=== PATIENT | male | born 1980 | race African-American/Black ===

== ENCOUNTER 2022-08-12 23:21 | Emergency (ER) | payer OTHER, SELFPAY ==
[2022-08-12 23:34] VITALS: BP 181/118; PULSE 81; RESP 18; TEMP 36.7; O2SAT 98; BMI 26.2
[2022-08-13] VITALS (8 sets, daily range): BP systolic 158–188; BP diastolic 90–119; PULSE 60–79; O2SAT 98–100
[2022-08-13] MEDS: METFORMIN HCL 500 MG TABLET 1000 MG PO (00:20)
[2022-08-13] MEDS: glipiZIDE 5 MG TABLET 10 MG PO (00:20)
[2022-08-13 00:42] LABS: Add Manual Diff / Slide Review NO; Basophils Absolute Auto 0 /uL (0-100); Basophils Percent Auto 0.5 % (0-2); Eosinophils Absolute Auto 100 /uL (0-450); Eosinophils Percent Auto 0.9 % (2-4); Hematocrit 43.1 % (41-53); Hemoglobin 14.3 g/dL (13.5-17.5); Lymphocytes Absolute Auto 2100 /uL (1100-4500); Lymphocytes Percent Auto 34.3 % (25-40); Mean Corpuscular HGB Conc 33.1 % (30-36); Mean Corpuscular Hemoglobin 27.7 PG (26-34); Mean Corpuscular Volume 83.7 fL (80-100); Monocytes Absolute Auto 400 /uL (0-900); Monocytes Percent Auto 6.9 % (3-14); Neutrophils Absolute Auto 3500 /uL (1500-7000); Neutrophils Percent Auto 57.4 % (50-75); Platelet Count 246 X10^3/uL (150-400); Red Blood Cell Count 5.15 X10^6/uL (4.5-5.9); Red Cell Distribution Width 13.2 % (11.6-14.8)
[2022-08-13] MEDS: SODIUM CHLORIDE 0.9% 1,000 ML 1000 ML IV (00:58)
[2022-08-13 00:59] LABS: Alanine Aminotransferase 37 IU/L (<50); Albumin 4.4 g/dL (3.5-5.0); Albumin Globulin Ratio 1.5 (1.0-2.8); Alkaline Phosphatase 71 U/L (38-126); Aspartate Aminotransferase 27 IU/L (17-59); BUN Creatinine Ratio 21.4 (6-22); Bilirubin Total 0.8 mg/dL (0.2-1.3); Blood Urea Nitrogen 18 mg/dL (9-20); Carbon Dioxide 27 mmol/L (22-32); Chloride 95 mmol/L (98-107); Estimated Glomerular Filt Rate > 60 mL/min (>60); Glucose 430 mg/dL (70-100); HEMOLYSIS < 15 (0-50); Lactate (Lactic Acid) 0.9 mmol/L (0.7-2.1); Lipase 218 U/L (23-300); Magnesium 1.8 mg/dL (1.6-2.3); Potassium 3.9 mmol/L (3.4-5.1); Sodium 131 mmol/L (137-145); Total Protein 7.4 g/dL (6.3-8.2)
--- NOTE | 2022-08-13 02:00 | PC.NURSE ---
pt here d/t elevated bs and htn, pt is from out of town here working, and did not take his meds
--- NOTE | 2022-08-13 02:07 | ED_ITS ---
HPI - General Adult General Chief complaint: Hypertension Stated complaint: high bp/diabetic sugar high/vomiting Time Seen by Provider: 08/12/22 23:26 Source: patient Mode of arrival: Ambulatory History of Present Illness HPI narrative: 42M nonsmoker with a history of NIDDM presents with a single episode of vomiting and elevated blood sugars in the 400s he also states he noted that he had blood pressure elevated in the 180s earlier today. He denies headache or blurred vision. He has no chest pain or shortness of breath. He denies any abdominal pain. He does state that he has not taken his diabetic medications today and admits that he was eating very poorly and had a large amount of sugary foods. Related Data Previous Rx's Medication Instructions Recorded glipizide 10 mg tablet 10 mg PO BID #60 tabs 08/13/22 lisinopril 20 mg tablet 20 mg PO DAILY #30 tabs 08/13/22 Allergies Allergy/AdvReac Type Severity Reaction Status Date / Time No Known Drug Allergies Allergy Verified 08/12/22 23:34 Review of Systems Review of Systems Narrative: GENERAL: Denies chills, fatigue, malaise, fever, sweats. HEENT: Denies sinus pain, ear pain, sore throat, difficulty swallowing, dizziness. RESPIRATORY: Denies dyspnea, cough, wheezing, hemoptysis, sputum. CARDIOVASCULAR: Denies chest pain, palpitations, orthopnea, edema, GASTROINTESTINAL: See HPI : Denies dysuria, frequency, incontinence, hematuria, urinary retention. MUSCULOSKELETAL: denies weakness, joint pain, or bony pain SKIN: Denies rash, skin lesions, or other NEUROLOGIC: Denies weakness, headache, numbness, change in speech, confusion, seizures, incoordination. PSYCHIATRIC: No concerning psychosocial issues. 12 point review of systems is negative except for those stated above Patient History Social History Smoking Status: Never smoker Smoking Status: Never smoker Substance Use Type: does not use Exam Narrative Exam Narrative: GENERAL: [42] year old patient appears stated age. Well-developed patient, in mild distress. HEAD: Atraumatic. Normocephalic. EYES: Pupils equal round and reactive. Extraocular motions intact. No scleral icterus. No injection or drainage. ENT: Nose without bleeding, purulent drainage. Throat without erythema, tonsillar hypertrophy or exudate. Airway patent. NECK: Trachea midline. Non tender CARDIOVASCULAR: Regular rate and rhythm without murmurs, gallops, or rubs. RESPIRATORY: Clear to auscultation. Breath sounds equal bilaterally. No wheezes, rales, or rhonchi. GASTROINTESTINAL: Abdomen soft, non-tender, nondistended. EXTREMITIES: No edema or joint tenderness. BACK: Nontender without deformity or crepitance. No flank tenderness. NEURO: AOx3. SKIN: No rash or erythema of visible areas Initial Vital Signs Initial Vital Signs: Vital Signs Temperature 98.1 F 08/12/22 23:34 Pulse Rate 81 08/12/22 23:34 Respiratory Rate 18 08/12/22 23:34 Blood Pressure 181/118 H 08/12/22 23:34 Pulse Oximetry 98 08/12/22 23:34 Oxygen Delivery Method Room Air 08/12/22 23:34 Course Orders Ordered: Discontinued Medications Glipizide (Glipizide 5 Mg Tablet) 10 mg PO NOW ONE Stop: 08/12/22 23:51 Last Admin: 08/13/22 00:20 Dose: 10 mg Documented By: CORINNA Sodium Chloride (Normal Saline 0.9%) 1,000 mls @ 1,000 mls/hr IV BOLUS ONE Stop: 08/13/22 00:49 Last Infusion: 08/13/22 02:17 Dose: 0 mls/hr Documented By: Admin: 08/13/22 00:58 Dose: 1,000 mls/hr Documented By: MIKE Lisinopril (Lisinopril 20 Mg Tablet) 20 mg PO NOW ONE Stop: 08/13/22 03:32 Last Admin: 08/13/22 03:52 Dose: 20 mg Documented By: MIKE Metformin HCl (Metformin Hcl 500 Mg Tablet) 1,000 mg PO NOW ONE Stop: 08/12/22 23:52 Last Admin: 08/13/22 00:20 Dose: 1,000 mg Documented By: CORINNA Reevaluation(s) Reevaluation #1: Patient continues to be asymptomatic, patient given fluids and his 1st dose of metformin and repeat blood sugars in the 300s. He does still have elevated blood pressure but is asymptomatic, will send a prescription for lisinopril Vital Signs Vital signs: Vital Signs - 8 hr 08/12/22 23:34 08/13/22 00:37 08/13/22 00:37 Temperature 98.1 F Pulse Rate 81 79 Respiratory Rate 18 Blood Pressure 181/118 H 181/99 H Pulse Oximetry 98 98 Oxygen Delivery Method Room Air 08/13/22 01:00 08/13/22 01:00 08/13/22 01:30 Temperature Pulse Rate 77 Respiratory Rate Blood Pressure 181/119 H 165/90 H Pulse Oximetry 98 Oxygen Delivery Method 08/13/22 01:30 08/13/22 01:49 08/13/22 01:49 Temperature Pulse Rate 68 63 Respiratory Rate Blood Pressure 177/101 H Pulse Oximetry 98 98 Oxygen Delivery Method 08/13/22 02:00 08/13/22 02:00 08/13/22 02:30 Temperature Pulse Rate 60 Respiratory Rate Blood Pressure 166/94 H 158/92 H Pulse Oximetry 98 Oxygen Delivery Method 08/13/22 02:30 08/13/22 03:00 08/13/22 03:00 Temperature Pulse Rate 70 Respiratory Rate Blood Pressure 180/106 H Pulse Oximetry 99 100 Oxygen Delivery Method 08/13/22 03:30 08/13/22 03:30 Temperature Pulse Rate 69 Respiratory Rate Blood Pressure 188/112 H Pulse Oximetry 100 Oxygen Delivery Method Medical Decision Making Lab Data 08/13/22 00:34 08/13/22 00:34 Labs: Lab Results 08/12/22 08/13/22 08/13/22 Range/Units 02:54 00:34 00:34 WBC 6.0 (4.5-11.0) X10^3/uL RBC 5.15 (4.5-5.9) X10^6/uL Hgb 14.3 (13.5-17.5) g/dL Hct 43.1 (41-53) % MCV 83.7 (80-100) fL MCH 27.7 (26-34) PG MCHC 33.1 (30-36) % RDW 13.2 (11.6-14.8) % Plt Count 246 (150-400) X10^3/uL Neut % (Auto) 57.4 (50-75) % Lymph % (Auto) 34.3 (25-40) % [place] % (Auto) 6.9 (3-14) % Eos % (Auto) 0.9 L (2-4) % Baso % (Auto) 0.5 (0-2) % Neut # (Auto) 3500 (1820-6721) /uL Lymph # (Auto) 2100 (8740-4331) /uL [place] # (Auto) 400 (0-900) /uL Eos # (Auto) 100 (0-450) /uL Baso # (Auto) 0 (0-100) /uL VBG pH 7.32 L (7.33-7.43) VBG pCO2 66.2 H (45-50) mmHg VBG pO2 16 L (35-45) mmHg VBG HCO3 34 H (24-28) mmol/L VBG Total CO2 36 H (24-29) mmol/L VBG O2 Saturation 19 L (70-75) % VBG Base Excess 8.0 H (0-4) mmol/L FiO2 21 Sodium 131 L (137-145) mmol/L Potassium 3.9 (3.4-5.1) mmol/L Chloride 95 L (98-107) mmol/L Carbon Dioxide 27 (22-32) mmol/L BUN 18 (9-20) mg/dL Creatinine 0.84 (0.66-1.25) mg/dL Estimated GFR > 60 (>60) mL/min BUN/Creatinine Ratio 21.4 (6-22) Glucose 430 H (70-100) mg/dL Lactate (0.7-2.1) mmol/L Calcium 9.0 (8.4-10.2) mg/dL Magnesium 1.8 (1.6-2.3) mg/dL Total Bilirubin 0.8 (0.2-1.3) mg/dL AST 27 (17-59) IU/L ALT 37 (<50) IU/L Alkaline Phosphatase 71 (38-126) U/L Total Protein 7.4 (6.3-8.2) g/dL Albumin 4.4 (3.5-5.0) g/dL Globulin 3.0 (1.7-4.1) g/dL Albumin/Globulin Ratio 1.5 (1.0-2.8) Lipase 218 (23-300) U/L 08/13/22 Range/Units 00:34 WBC (4.5-11.0) X10^3/uL RBC (4.5-5.9) X10^6/uL Hgb (13.5-17.5) g/dL Hct (41-53) % MCV (80-100) fL MCH (26-34) PG MCHC (30-36) % RDW (11.6-14.8) % Plt Count (150-400) X10^3/uL Neut % (Auto) (50-75) % Lymph % (Auto) (25-40) % [place] % (Auto) (3-14) % Eos % (Auto) (2-4) % Baso % (Auto) (0-2) % Neut # (Auto) (1118-5135) /uL Lymph # (Auto) (7596-6609) /uL [place] # (Auto) (0-900) /uL Eos # (Auto) (0-450) /uL Baso # (Auto) (0-100) /uL VBG pH (7.33-7.43) VBG pCO2 (45-50) mmHg VBG pO2 (35-45) mmHg VBG HCO3 (24-28) mmol/L VBG Total CO2 (24-29) mmol/L VBG O2 Saturation (70-75) % VBG Base Excess (0-4) mmol/L FiO2 Sodium (137-145) mmol/L Potassium (3.4-5.1) mmol/L Chloride (98-107) mmol/L Carbon Dioxide (22-32) mmol/L BUN (9-20) mg/dL Creatinine (0.66-1.25) mg/dL Estimated GFR (>60) mL/min BUN/Creatinine Ratio (6-22) Glucose (70-100) mg/dL Lactate 0.9 (0.7-2.1) mmol/L Calcium (8.4-10.2) mg/dL Magnesium (1.6-2.3) mg/dL Total Bilirubin (0.2-1.3) mg/dL AST (17-59) IU/L ALT (<50) IU/L Alkaline Phosphatase (38-126) U/L Total Protein (6.3-8.2) g/dL Albumin (3.5-5.0) g/dL Globulin (1.7-4.1) g/dL Albumin/Globulin Ratio (1.0-2.8) Lipase (23-300) U/L Point of Care Testing Glucose POC 349 Urine Dip Bedside Urine Glucose 1000 mg/dl Bedside Urine Bilirubin - Negative Bedside Urine Ketone - Negative Urine Specific [place] 1.0 Bedside Urine Occult Blood - Negative Bedside Urine pH 6.5 Bedside Urine Protein - Negative Bedside Urine Urobilinogen - Negative Bedside Urine Nitrite - Negative Bedside Urine Leukocytes - Negative Esterase Point of care testing: Point of Care Testing Glucose POC 349 Urine Dip Bedside Urine Glucose 1000 mg/dl Bedside Urine Bilirubin - Negative Bedside Urine Ketone - Negative Urine Specific [place] 1.0 Bedside Urine Occult Blood - Negative Bedside Urine pH 6.5 Bedside Urine Protein - Negative Bedside Urine Urobilinogen - Negative Bedside Urine Nitrite - Negative Bedside Urine Leukocytes - Negative Esterase MDM Narrative Medical decision making narrative: 42 year old patient presents with elevated blood sugar after a day of dietary indiscretions and not taking his diabetic medications Multiple etiologies for patient's symptoms considered including, but not limited to: Medical noncompliance, hyperglycemia, DKA, honk versus other] No prior charts available in our EMR Primary Historian: patient Labs reviewed and interpreted by myself: No evidence diabetic emergency, initial blood sugar over 400, after fluids and metformin it drops into the 300s Patient's symptoms improved over duration of stay with above-stated therapies. Findings and discharge diagnosis discussed with patient/family followed by verbalization of understanding Return precautions discussed with patient/family whom verbalize understanding of diagnosis and plan Discharge Plan Departure Patient Disposition: Home Clinical Impression: Hypertension, Acute hyperglycemia Instructions: DI for High Blood Pressure, DI for Hyperglycemia -- Adult Activity Restrictions/Additional Instructions: *You have been diagnosed with [hyperglycemia and hypertension] *What to do: *Please continue to take your regular medications as directed. [x ] New medication prescriptions sent to your pharmacy: [[facility] ] [ ] New medication written as a paper prescription [ ] No new medications given *Please follow up with your primary care provider in 2-3 days, call for an appointment. Let them know you were seen in the Emergency Department and that we ask that you be seen in follow up. We will electronically transmit a record of today's note if your PCP is in our system *If you do not have a primary care provider please contact the [facility] Resource line at [phone]. They will ask some questions about your medical history and help get you set up with a doctor in the community. *Return to Emergency Department if you should have any new, worsening or concerning symptoms, such as [fever greater than 101 F, shaking chills, wo rsening pain, persistent vomiting or other bothersome symptoms] Prescriptions: New glipizide 10 mg tablet 10 mg PO BID Qty: 60 2RF lisinopril 20 mg tablet 20 mg PO DAILY Qty: 30 2RF Stand Alone Forms: Patient Portal/API, Work Release Note
[2022-08-13] MEDS: lisinopriL 20 MG TABLET PO (03:52)
[2022-08-13 09:47] LABS: HCO3 VBG 34 mmol/L (24-28); Oxygen Saturation VBG 19 % (70-75); PO2 VBG 16 mmHg (35-45); Total CO2 VBG 36 mmol/L (24-29); pH VBG 7.32 (7.33-7.43)
[2022-08-13 09:49] LABS: Fractionated Inspired Oxygen 21
[2022-08-13 09:51] LABS: PCO2 VBG 66.2 mmHg (45-50)
== END 2022-08-13 04:11 | disposition home or self-care (01) ==
PROVIDERS: Emergency Provider Emergency Medicine
DX: I10 Essential (primary) hypertension (principal); R73.9 Hyperglycemia, unspecified; R11.10 Vomiting, unspecified
CPT/HCPCS: 36415; 80053; 81003; 82805; 82962; 83605; 83690; 83735; 85025; 96360; 99284

== ENCOUNTER 2024-02-20 01:16 | Emergency (ER) | payer OTHER, SELFPAY ==
[2024-02-20] VITALS (7 sets, daily range): BP systolic 142–187; BP diastolic 78–100; PULSE 72–96; RESP 15–19; TEMP 36.4–36.9; O2SAT 96–99; BMI 25.8
--- NOTE | 2024-02-20 01:30 | PC.NURSE ---
Pt brought to shower for decon. pt in shower, towels provided.
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
[2024-02-20] MEDS: HYDROCODONE/ACET 5/325 TABLET 1 TAB PO (01:48)
[2024-02-20] MEDS: BACITRACIN OINT 0.9 GM PCKT 1 APPLIC TOP (01:57)
[2024-02-20] MEDS: HYDROCODONE/ACET 5/325 PREPACK 1 BOTTLE MISC (02:45)
== END 2024-02-20 03:06 | disposition home or self-care (01) ==
PROVIDERS: Emergency Provider Emergency Medicine
DX: T65.91XA Toxic effect of unspecified substance, accidental (unintentional), initial encounter (principal); T20.67XA Corrosion of second degree of neck, initial encounter; Y99.0 Civilian activity done for income or pay; Y92.69 Other specified industrial and construction area as the place of occurrence of the external cause
CPT/HCPCS: 99283